=== PATIENT | male | born 1965 | race Caucasian/White ===

== ENCOUNTER 2020-03-10 17:57 | Emergency (ER) | payer BC, MEDICAID, OTHER ==
[~2020-03-10] VITALS: Ht 172.7 cm; Wt 74.4 kg
[2020-03-10] MEDS ORDERED: BUSPIRONE HCL10 M1 ORAL (18:15)
[2020-03-10] MEDS ORDERED: TRAZODONE HCL100 MG ORAL (18:15)
[2020-03-10] MEDS ORDERED: AMLODIPINE BES2.5 MG ORAL (18:15)
[2020-03-10 18:20] VITALS: BP 114/71
[2020-03-10] MEDS ORDERED: Ketorolac 30mg Inj IV ONE (18:30)
--- NOTE | 2020-03-10 18:38 | Emergency Room Report ---
History of Present Illness General Chief Complaint: Male Urogenital Problems Source: Patient, Significant Other Present Illness HPI Patient is a 54-year-old male who presents after increased left-sided flank pain. Reports having recent onset of hematuria. Denies prior history of kidney stones. Had recently been having increased dysuria. Had some recent hematuria with his primary care physician. He denies any fever. Denies prior history of kidney stones. Allergies: Coded Allergies: No Known Allergies (Unverified , 03/10/20) COVID-19 Screening Contact w/high risk pt: No Recent Travel to affected area: No Experienced COVID-19 symptoms?: No COVID-19 Testing performed VACUUM PAN TENDER: No Patient History Past Medical History: see triage record Reviewed Nursing Documentation: PMH: Agreed; PSxH: Agreed Nursing Documentation-PMH Past Medical History: No History, Except For Hx Hypertension: Yes History Of Psychiatric Problem: Yes Review of Systems All Other Systems: negative except mentioned in HPI Physical Exam Vital Signs Date Time Temp Pulse Resp B/P (MAP) Pulse Ox O2 Delivery O2 Flow Rate FiO2 03/10/20 18:07 98.8 96 22 114/71 (85) 98 Room Air Sp02 EP Interpretation: reviewed, normal General Appearance: normal inspection, well appearing, no apparent distress, alert, GCS 15 Head: atraumatic ENT: normal ENT inspection, hearing grossly normal, normal voice Neck: normal inspection, full range of motion, supple, no bony tend Respiratory: normal inspection, lungs clear, normal breath sounds, no respiratory distress, no retraction, no wheezing Cardiovascular #1: regular rate, rhythm, no edema Gastrointestinal: normal inspection, normal bowel sounds, non tender, soft, no guarding, no hernia Genitourinary: no CVA tenderness Musculoskeletal: normal inspection, back normal, normal range of motion Neurologic: alert, motor strength/tone normal, electrician rectifier maintenance III-XII nml as tested, oriented x3, responsive, speech normal, normal inspection Psychiatric: normal inspection, judgement/insight normal, mood/affect normal Medical Decision Making Diagnostic Impression: Primary Impression: Renal colic on left side ER Course Patient presented for left-sided flank pain. Differential diagnosis include was not limited to ureteral stone, urinary tract infection, pyelonephritis among others. Patient has a benign exam and does not appear to require any imaging or laboratory testing at this time. Patient appears to have some symptoms consistent with a recent stone. He was given IV Toradol for pain.Patient appears to be stable for outpatient follow-up. He was given IV antibiotics. He is given prescription for pain medications as well as continued antibiotics. He was advised to follow-up with urology. Patient was advised to return if he had any worsening condition or other concerns. Labs Test 03/10/20 18:18 03/10/20 19:30 White Blood Count 7.3 K/UL (4.8-10.8) Red Blood Count 4.04 M/UL (4.70-6.10) Hemoglobin 13.5 G/DL (14.2-18.0) Hematocrit 41.0 % (42.0-52.0) Mean Corpuscular Volume 101 FL (80-99) Mean Corpuscular Hemoglobin 33.3 PG (27.0-31.0) Mean Corpuscular Hemoglobin Concent 32.8 G/DL (32.0-36.0) Red Cell Distribution Width 12.6 % (11.6-14.8) Platelet Count 172 K/UL (150-450) Mean Platelet Volume 8.5 FL (6.5-10.1) Neutrophils (%) (Auto) 80.4 % (45.0-75.0) Lymphocytes (%) (Auto) 10.2 % (20.0-45.0) Monocytes (%) (Auto) 7.7 % (1.0-10.0) Eosinophils (%) (Auto) 0.9 % (0.0-3.0) Basophils (%) (Auto) 0.9 % (0.0-2.0) Prothrombin Time 11.3 SEC (9.30-11.50) Prothromb Time International Ratio 1.0 (0.9-1.1) Activated Partial Thromboplast Time 27 SEC (23-33) Sodium Level 138 MMOL/L (136-145) Potassium Level 3.6 MMOL/L (3.5-5.1) Chloride Level 102 MMOL/L (98-107) Carbon Dioxide Level 30 MMOL/L (21-32) Anion Gap 6 mmol/L (5-15) Blood Urea Nitrogen 25 mg/dL (7-18) Creatinine 1.3 MG/DL (0.55-1.30) Estimat Glomerular Filtration Rate 57.1 mL/min (>60) Glucose Level 116 MG/DL (74-106) Calcium Level 8.4 MG/DL (8.5-10.1) Total Bilirubin 0.3 MG/DL (0.2-1.0) Aspartate Amino Transf (AST/SGOT) 18 U/L (15-37) Alanine Aminotransferase (ALT/SGPT) 22 U/L (12-78) Alkaline Phosphatase 42 U/L (46-116) Total Protein 6.5 G/DL (6.4-8.2) Albumin 3.1 G/DL (3.4-5.0) Globulin 3.4 g/dL Albumin/Globulin Ratio 0.9 (1.0-2.7) Urine Color Batool Urine Appearance Clear Urine pH 5 (4.5-8.0) Urine Specific [place] 1.025 (1.005-1.035) Urine Protein 2+ (NEGATIVE) Urine Glucose (UA) Negative (NEGATIVE) Urine Ketones 1+ (NEGATIVE) Urine Blood 3+ (NEGATIVE) Urine Nitrite Negative (NEGATIVE) Urine Bilirubin 1+ (NEGATIVE) Urine Ictotest Negative (NEGATIVE) Urine Urobilinogen 1 MG/DL (0.0-1.0) Urine Leukocyte Esterase 2+ (NEGATIVE) Urine RBC 2-4 /HPF (0 - 0) Urine WBC 0-2 /HPF (0 - 0) Urine Squamous Epithelial Cells None /LPF (NONE/OCC) Urine Bacteria Few /HPF (NONE) Last Vital Signs Date Time Temp Pulse Resp B/P (MAP) Pulse Ox O2 Delivery O2 Flow Rate FiO2 03/10/20 18:20 98.8 89 22 114/71 98 Room Air Status: improved Disposition: HOME, SELF-CARE Condition: Stable Scripts Tamsulosin HCl (Flomax) 0.4 Mg Cap.er.24h 0.4 MG ORAL DAILY, #30 CAP Prov: Wade Mosley MD 03/10/20 Cephalexin* (KEFLEX*) 500 Mg Capsule 500 MG ORAL EVERY 6 HOURS, #28 CAP Prov: Wade Mosley MD 03/10/20 Hydrocodone Bit/Acetaminophen 5-325* (NORCO 5-325 TABLET*) 1 Each Tablet 1 TAB ORAL Q4H PRN for FOR PAIN, #12 TAB 0 Refills Prov: Wade Mosley MD 03/10/20 Wade Mosley MD Mar 10, 2020 18:38
[2020-03-10 18:51] LABS: BASOPHILS % (AUTO) 0.9 % (0.0-2.0); EOSINOPHILS % (AUTO) 0.9 % (0.0-3.0); HEMOGLOBIN 13.5 G/DL (14.2-18.0); LYMPHOCYTES % (AUTO) 10.2 % (20.0-45.0); MEAN CORPUSCULAR VOLUME 101 FL (80-99); MONOCYTES % (AUTO) 7.7 % (1.0-10.0); NEUTROPHILS % (AUTO) 80.4 % (45.0-75.0); PLATELET COUNT 172 K/UL (150-450); RED BLOOD COUNT 4.04 M/UL (4.70-6.10); RED CELL DISTRIBUTION WIDTH 12.6 % (11.6-14.8); WHITE BLOOD COUNT 7.3 K/UL (4.8-10.8)
[2020-03-10 19:01] LABS: ANION GAP 6 mmol/L (5-15); BLOOD UREA NITROGEN 25 mg/dL (7-18); CALCIUM 8.4 MG/DL (8.5-10.1); CARBON DIOXIDE 30 MMOL/L (21-32); CHLORIDE 102 MMOL/L (98-107); CREATININE 1.3 MG/DL (0.55-1.30); POTASSIUM 3.6 MMOL/L (3.5-5.1); SODIUM 138 MMOL/L (136-145)
[2020-03-10 19:06] LABS: ALANINE AMINOTRANSFERASE 22 U/L (12-78); ALBUMIN 3.1 G/DL (3.4-5.0); ALBUMIN/GLOBULIN RATIO 0.9 (1.0-2.7); ALKALINE PHOSPHATASE 42 U/L (46-116); ASPARTATE AMINO TRANSFERASE 18 U/L (15-37); BILIRUBIN,TOTAL 0.3 MG/DL (0.2-1.0)
[2020-03-10] MEDS ORDERED: FLOMAX0.4 MG ORAL (19:31)
[2020-03-10] MEDS ORDERED: CEPHALEXIN500 MG ORAL (19:31)
[2020-03-10] MEDS ORDERED: NORCO 5-325 TA1 EAC1 ORAL (19:31)
[2020-03-10] MEDS ORDERED: cefTRIAXone 1 GM in NS 55 ML IVPB ONE (19:45)
[2020-03-10 20:00] VITALS: BP 114/71
--- NOTE | 2020-03-10 20:13 | Diagnostic Imaging Report ---
EXAM: US Retroperitoneal Limited, Renal CLINICAL HISTORY: Left flank pain. Hypertension TECHNIQUE: Real-time limited ultrasound of the retroperitoneum with image documentation. COMPARISON: No relevant prior studies available. FINDINGS: Right kidney: Right kidney measures about 10.5 x 5.4 x 4.9 cm. Reported with poorly demonstrated tiny nonobstructing renal stones. Left kidney: Left kidney measures about 10.9 x 5.3 x 5.3 cm. Reported with poorly demonstrated tiny nonobstructing renal stones Bladder: Bilateral ureteral jets are present. IMPRESSION: Questionable tiny nonobstructing renal stones.
[2020-03-10 20:28] LABS: APPEARANCE,URINE CLEAR; BILIRUBIN, URINE 1+ (NEGATIVE); GLUCOSE, URINE (UA) NEGATIVE (NEGATIVE); KETONES,URINE 1+ (NEGATIVE); LEUKOCYTE ESTERASE ,URINE 2+ (NEGATIVE); NITRITE,URINE NEGATIVE (NEGATIVE); PH,URINE 5 (4.5-8.0); PROTEIN,URINE 2+ (NEGATIVE); UROBILINOGEN,URINE 1 MG/DL (0.0-1.0)
[2020-03-10 20:29] LABS: COLOR,URINE AMBER
== END 2020-03-10 20:00 | disposition home or self-care (01) ==
LOC: EMR 18:30
DX: N23 Unspecified renal colic (principal); R31.9 Hematuria, unspecified; I10 Essential (primary) hypertension
CPT/HCPCS: 36415; 76770; 80053; 81003; 85025; 85610; 85730; 96365; 96375; J0696; J1885; Z7502; 99284

== ENCOUNTER 2020-11-03 08:54 | Outpatient (CLI) | payer MEDICAID ==
[~2020-11-03] VITALS: Ht 172.7 cm; Wt 77.6 kg
[~2020-11-03 08:54] MED LIST: AMLODIPINE BES2.5 MG ORAL; BUSPIRONE HCL10 M1 ORAL; CEPHALEXIN500 MG ORAL; FLOMAX0.4 MG ORAL; NORCO 5-325 TA1 EAC1 ORAL; TRAZODONE HCL100 MG ORAL
[2020-11-03 09:29] VITALS: BP 128/72
--- NOTE | 2020-11-05 16:44 | Consultation ---
DATE OF CONSULTATION: 11/03/2020 CHIEF COMPLAINT: Referral for abdominal pain, 30 pounds of weight loss, gas. PAST MEDICAL HISTORY: 1. Hypertension. 2. Depression. 3. Diverticulitis. PAST SURGICAL HISTORY: Left surgery. MEDICATIONS: Please see medication reconciliation list. ALLERGIES: No known drug allergies. FAMILY HISTORY: Noncontributory. SOCIAL HISTORY: The patient occasionally drinks alcohol. Denies any IV drug abuse or tobacco abuse. REVIEW OF SYSTEMS: Positive for bloating, 30 pounds of weight loss but the patient is under lot of stress. Positive nausea, few episodes of vomiting, diarrhea and constipation cycle. PLAN: This is a 55-year-old male, differential diagnosis would be IBS, SIBO. The patient also needs screening colonoscopy given age of 55 and never had a colonoscopy for the last 5 years. Given weight loss, needs an endoscopy, so patient was given the prescription for Xifaxan, also prep for endoscopy and colonoscopy. We will schedule him as soon as authorization is obtained. Chris Tyson M.D. DR: Ashley JOB#: [id number] CC:
== END 2020-11-03 10:54 | disposition home or self-care (01) ==
LOC: PAN 08:54
DX: R14.0 Abdominal distension (gaseous) (principal); R63.4 Abnormal weight loss; R11.0 Nausea; R10.9 Unspecified abdominal pain; I10 Essential (primary) hypertension; E11.9 Type 2 diabetes mellitus without complications
CPT/HCPCS: 99203